=== PATIENT | female | born 1975 | race Two or more races ===

== ENCOUNTER → 2024-07-08 | Outpatient (CLI) | payer MEDICAID, SELFPAY ==
--- NOTE | 2024-07-08 11:00 | XR_ITS ---
Examination: Breast ultrasound, unilateral, left complete Date and time of exam: July 08, 2024 1137 hours INDICATIONS: Left breast pain several months, mammogram September 19, 2023 18 mm nodule upper outer breast Technique: Real-time wheeler scale ultrasonographic imaging performed left breast including all 4 quadrants as well as nipple retroareolar and axillary region. Findings: 12:00 cyst 20 x 18 mm 1:00 oval mass lobular margins 10 x 10 mm IMPRESSION: BI-RADS Category 3: Probably benign findings Recommend 1 additional 6 month left breast sonogram follow-up to document stability of 1:00 nodule described above
--- NOTE | 2024-07-08 11:30 | XR_ITS ---
Examination: Diagnostic digital mammography, unilateral, left Computer aided detection 3-D breast Tomosynthesis, unilateral Date and time of exam: July 08, 2024 1151 hours INDICATIONS: Outside mammogram September 19, 2023 18 mm mass upper left breast Technique: Nonmagnified MLO, CC views of the left breast have been obtained, reconstructed from 3-D Tomosynthesis images. R2 computer aided detection program utilized for evaluation of suspicious masses and/or abnormal calcifications. 3-D Tomosynthesis images obtained. Findings: The breast is heterogeneously dense, which may obscure small masses2 Round 20 mm circumscribed mass is depicted Position left breast corresponding to 20 mm cyst described on left breast sonogram today Adjacent 1:00 mass 10 mm is present which corresponds to 1:00 nodule on the left breast sonogram today Impression: BI-RADS category 3: Probably benign findings One additional 6 month left mammogram follow-up is needed to document stability of 1:00 nodule described above
== END | disposition home or self-care (01) ==
LOC: CDIM 11:22
PROVIDERS: PCP Family Medicine; Referring Provider Nurse Practitioner; Visit Provider Nurse Practitioner
DX: R92.332 Mammographic heterogeneous density, left breast (principal); N63.21 Unspecified lump in the left breast, upper outer quadrant
CPT/HCPCS: 76641; 77061; 77065; G0279